=== PATIENT | female | born 1990 | race Caucasian/White ===

== ENCOUNTER 2017-12-17 11:22 | Inpatient (IN) | payer OTHER ==
[~2017-12-17] VITALS: Ht 157.5 cm; Wt 125.5 kg
[~2017-12-17 11:22] MED LIST: LEVO100T5 PO; PREN1TAB60 PO
[2017-12-17 11:48] VITALS: BP 151/83
[2017-12-17 11:58] LABS: BASOPHILS # (AUTO) 0.02 x10^3/uL (0-0.1); BASOPHILS % (AUTO) 0 % (0-1); EOSINOPHILS % (AUTO) 0 % (1-7); LYMPHOCYTES # (AUTO) 1.84 x10^3/uL (1-3.4); LYMPHOCYTES % (AUTO) 17 % (22-44); MD NO; MEAN CORPUSCULAR HEMOGLOBIN 30.1 pg (27.0-34.8); MEAN CORPUSCULAR HGB CONC 34.5 g/dL (32.4-35.8); MEAN CORPUSCULAR VOLUME 87.3 fL (80-100); MEAN PLATELET VOLUME 9.3 fL (7.4-10.4); MONOCYTES # (AUTO) 0.83 x10^3/uL (0.2-0.8); MONOCYTES % (AUTO) 8 % (2-9); NEUTROPHILS # (AUTO) 8.04 x10^3/uL (1.8-6.8); NEUTROPHILS % (AUTO) 75 % (42-75); PLATELET COUNT 318 x10^3/uL (130-400); RED BLOOD COUNT 4.24 x10^6/uL (3.82-5.3); RED CELL DISTRIBUTION WIDTH 15.1 % (9.6-15.2)
[2017-12-17 11:58] LABS: MICROSCOPIC NOT IND
[2017-12-17 12:09] LABS: ALANINE AMINOTRANSFERASE 14 U/L (12-78); ALBUMIN 2.9 g/dL (3.4-5.0); ANION GAP 11 mmol/L (5-15); CALCIUM 9.3 mg/dL (8.5-10.1); CHLORIDE 105 mmol/L (98-107); CREATININE 0.52 mg/dL (0.55-1.02)
[2017-12-17 12:11] LABS: ALKALINE PHOSPHATASE 174 U/L (45-117); BILIRUBIN,TOTAL 0.3 mg/dL (0.2-1.0); TOTAL PROTEIN 7.2 g/dL (6.4-8.2)
[2017-12-17 12:13] LABS: CREATININE,URINE RANDOM 60.4 mg/dL
[2017-12-17] MEDS ORDERED: ACETAMINOPHEN 325 MG TABLET ONE ×2 (12:24→16:51)
[2017-12-17] MEDS ORDERED: OXYTOCIN 30U/ 0.9% NaCL 500ML 500 ML IV ONE (12:34)
[2017-12-17] MEDS: ACETAMINOPHEN 325 MG TABLET PO PRN ×2 (12:35→16:53)
[2017-12-17] MEDS ORDERED: FENTANYL PF 100 MCG/2ML IV PRN (13:00)
[2017-12-17] MEDS ORDERED: ONDANSETRON 2MG/ML, 2ML IVPush PRN (13:00)
[2017-12-17] MEDS: LACTATED RINGERS 1,000 ML IV SCH ×2 (13:06→20:44)
[2017-12-17] MEDS ORDERED: MAGNESIUM SULF. PMX 20GM/500ML 500 ML IV ONE ×2 (13:56→21:54)
[2017-12-17] MEDS ORDERED: MISOPROSTOL 25 MCG TABLET ONE ×3 (14:08→19:05)
[2017-12-17] MEDS ORDERED: MAGNESIUM SULFATE PMX 4GM/100M 100 ML IVPB ONE (14:30)
[2017-12-17] MEDS: MAGNESIUM SULF. PMX 20GM/500ML 500 ML IV SCH ×2 (14:36→21:57)
[2017-12-17] MEDS: MISOPROSTOL 25 MCG TABLET VG PRN ×2 (14:56→19:00)
[2017-12-17] MEDS ORDERED: NEWBORN KIT ONE (15:23)
[2017-12-17] MEDS ORDERED: OXYTOCIN 30U/ 0.9% NaCL 500ML 500 ML ONE (15:23)
[2017-12-17] MEDS ORDERED: OXYcodone/APAP 5/325MG TABLET ONE (19:59)
[2017-12-17] MEDS: OXYcodone/APAP 5/325MG TABLET PO PRN (20:02)
[2017-12-18] MEDS: MISOPROSTOL 25 MCG TABLET VG PRN (02:05)
[2017-12-18] MEDS ORDERED: FENTANYL PF 100 MCG/2ML ONE ×4 (03:03→23:57)
[2017-12-18] MEDS: FENTANYL PF 100 MCG/2ML IVPush PRN ×3 (05:16→23:59)
[2017-12-18] MEDS ORDERED: OXYcodone/APAP 5/325MG TABLET ONE (07:31)
[2017-12-18] MEDS ORDERED: MAGNESIUM SULF. PMX 20GM/500ML 500 ML IV ONE ×2 (07:31→17:56)
[2017-12-18] MEDS: OXYcodone/APAP 5/325MG TABLET PO PRN (07:34)
[2017-12-18] MEDS: MAGNESIUM SULF. PMX 20GM/500ML 500 ML IV SCH ×2 (07:36→18:01)
[2017-12-18] MEDS: LACTATED RINGERS 1,000 ML IV SCH ×3 (07:54→20:34)
[2017-12-18] MEDS ORDERED: MISOPROSTOL 25 MCG TABLET ONE (08:09)
[2017-12-18] MEDS ORDERED: BUTALB/APAP/CAFFEINE 50MG/325MG/40MG PO PRN (09:30)
[2017-12-18] MEDS ORDERED: LIDOCAINE 1%, 50ML ONE (17:51)
[2017-12-18] MEDS ORDERED: MISOPROSTOL 200 MCG TABLET ONE (17:52)
[2017-12-18] MEDS ORDERED: DIPH,PERTUSS(ACELL),TET VAC/PF NC IM-VACC ONE (17:56)
[2017-12-18 19:19] VITALS: BP 134/75
[2017-12-18] MEDS ORDERED: FENTANYL/BUPIV./NS/PF 250 ML EPIDCONT SCH (20:17)
[2017-12-18] MEDS ORDERED: FENTANYL PF 500 MCG, BUPIVACAINE/PF 0.5%, 30ML 62.5 ML in SODIUM CHLORIDE 0.9% 177.5 ML EPIDCONT SCH (20:30)
[2017-12-18] MEDS ORDERED: ZOLPIDEM 10MG TABLET ONE (21:24)
[2017-12-18] MEDS ORDERED: ZOLPIDEM 10MG TABLET PO PRN (21:30)
[2017-12-18] MEDS ORDERED: OXYTOCIN 30U/ 0.9% NaCL 500ML 500 ML IV PRN (21:44)
[2017-12-19 00:24] VITALS: BP 172/79
[2017-12-19] MEDS ORDERED: LABETALOL 200 MG TABLET PO SCH (00:30)
[2017-12-19] MEDS ORDERED: LABETALOL 200 MG TABLET ONE (00:35)
[2017-12-19 01:01] VITALS: BP 131/73
[2017-12-19] MEDS ORDERED: LABETALOL 200 MG TABLET PO ONE (01:30)
[2017-12-19] MEDS ORDERED: MAGNESIUM SULF. PMX 20GM/500ML 500 ML IV ONE ×2 (03:34→14:39)
[2017-12-19] MEDS: LACTATED RINGERS 1,000 ML IV SCH ×4 (03:37→23:16)
[2017-12-19] MEDS: MAGNESIUM SULF. PMX 20GM/500ML 500 ML IV SCH ×2 (03:37→14:43)
[2017-12-19 05:14] VITALS: BP 131/91
[2017-12-19] MEDS ORDERED: FENTANYL PF 100 MCG/2ML ONE ×3 (06:11→21:52)
[2017-12-19] MEDS: FENTANYL PF 100 MCG/2ML IVPush PRN (06:16)
[2017-12-19 08:00] VITALS: BP 124/64
[2017-12-19] MEDS ORDERED: FENTANYL/BUPIV./NS/PF 250 ML EPIDCONT SCH (08:45)
[2017-12-19] MEDS ORDERED: EPHEDRINE 50 MG/ML, 1ML IVPush PRN (09:00)
[2017-12-19] MEDS ORDERED: NALOXONE 0.4 MG/ML, 1ML IVPush PRN (09:00)
[2017-12-19] MEDS ORDERED: LACTATED RINGERS 1,000 ML IVBOLUS PRN (09:00)
[2017-12-19] MEDS ORDERED: BUPIVACAINE 0.25% ONE (09:15)
[2017-12-19] MEDS ORDERED: hydrALAzine 20 MG/ML, 1ML ONE ×2 (13:44→19:31)
[2017-12-19] MEDS ORDERED: hydrALAzine 20 MG/ML, 1ML IVPush ONE ×2 (14:00)
[2017-12-19] MEDS ORDERED: ACETAMINOPHEN 325 MG TABLET ONE ×2 (16:12→20:57)
[2017-12-19] MEDS: ACETAMINOPHEN 325 MG TABLET PO PRN ×2 (16:14→21:00)
[2017-12-19] MEDS ORDERED: D5%-LACTATED RINGERS 1,000 ML IV SCH (18:00)
[2017-12-19] MEDS ORDERED: hydrALAzine 20 MG/ML, 1ML IV ONE ×2 (19:30→21:00)
[2017-12-19] MEDS ORDERED: METOCLOPRAMIDE 5 MG/ML, 2ML ONE (21:20)
[2017-12-19] MEDS ORDERED: SODIUM CITRATE/CITRIC ACID 30 ML UDC ONE (21:20)
[2017-12-19] MEDS ORDERED: DEXAMETHASONE 4 MG/ML, 1ML ONE (21:52)
[2017-12-19] MEDS ORDERED: SUCCINYLCHOLINE 20 MG/ML, 10ML ONE (21:52)
[2017-12-19] MEDS ORDERED: ONDANSETRON 2MG/ML, 2ML ONE (21:52)
[2017-12-19] MEDS ORDERED: KETOROLAC 30 MG/1 ML ONE (21:52)
[2017-12-19] MEDS ORDERED: CEFAZOLIN 1,000 MG ONE (21:52)
[2017-12-19] MEDS ORDERED: EPHEDRINE 50 MG/ML, 1ML ONE (21:52)
[2017-12-19] MEDS ORDERED: PROPOFOL 10 MG/ML, 20ML ONE (21:52)
[2017-12-19] MEDS ORDERED: PHENYLEPHRINE 10 MG/ML ONE (21:52)
[2017-12-19] MEDS ORDERED: OXYTOCIN 10 UNITS/ML, 1ML ONE (21:52)
[2017-12-19] MEDS ORDERED: LACTATED RINGERS 1,000 ML IV SCH (23:16)
[2017-12-19] MEDS ORDERED: LABETALOL 5MG/ML, 20ML IV PRN (23:30)
[2017-12-19] MEDS ORDERED: MEPERIDINE/PF 50 MG/ML IVPush PRN (23:30)
[2017-12-19] MEDS ORDERED: FENTANYL PF 100 MCG/2ML IV PRN (23:30)
[2017-12-19] MEDS ORDERED: hydrALAzine 20 MG/ML, 1ML IV PRN (23:30)
[2017-12-19] MEDS ORDERED: MEPERIDINE/PF 100 MG/ML IVPush PRN (23:30)
[2017-12-19] MEDS ORDERED: ONDANSETRON 2MG/ML, 2ML IVPush PRN (23:30)
[2017-12-19] MEDS ORDERED: OXYcodone 5 MG/5 ML ORAL.SOL UDC PO PRN (23:30)
[2017-12-19] MEDS ORDERED: PROMETHAZINE 25 MG/ML, 1ML IV PRN (23:30)
[2017-12-19] MEDS ORDERED: HYDROcodone/APAP 7.5-325MG/15ML UDC PO PRN (23:30)
[2017-12-19] MEDS ORDERED: morphine SULFATE 10 MG/ML, 1ML IVPush PRN ×2 (23:30)
[2017-12-19] MEDS ORDERED: ONDANSETRON 2MG/ML, 2ML IV PRN (23:30)
[2017-12-19] MEDS ORDERED: ACETAMINOPHEN 325 MG TABLET PO PRN (23:30)
[2017-12-19] MEDS ORDERED: OXYcodone/APAP 5/325MG TABLET PO PRN (23:30)
[2017-12-19] MEDS ORDERED: MISOPROSTOL 200 MCG TABLET PR PRN (23:30)
[2017-12-19] MEDS ORDERED: HYDROmorphone 1 MG/ML, 1ML IV PRN (23:30)
[2017-12-19] MEDS ORDERED: MEPERIDINE/PF 25MG/0.5ML IVPush PRN (23:30)
[2017-12-20] MEDS ORDERED: OXYcodone/APAP 5/325MG TABLET ONE ×8 (00:45→21:57)
[2017-12-20] MEDS: OXYcodone/APAP 5/325MG TABLET PO PRN ×6 (00:47→22:06)
[2017-12-20] MEDS ORDERED: MAGNESIUM SULF. PMX 20GM/500ML 500 ML IV ONE ×2 (01:00→12:42)
[2017-12-20] MEDS ORDERED: OXYTOCIN 30U/ 0.9% NaCL 500ML 500 ML ONE (01:00)
[2017-12-20] MEDS: MAGNESIUM SULF. PMX 20GM/500ML 500 ML IV SCH ×2 (01:05→12:51)
[2017-12-20] MEDS: OXYTOCIN 30U/ 0.9% NaCL 500ML 500 ML IV SCH ×3 (01:06→19:16)
[2017-12-20] MEDS: LACTATED RINGERS 1,000 ML IV SCH ×3 (01:06→19:16)
[2017-12-20] MEDS ORDERED: METOCLOPRAMIDE 5 MG/ML, 2ML IVPush ONE (06:30)
[2017-12-20] MEDS ORDERED: SODIUM CITRATE/CITRIC ACID 30 ML UDC PO ONE (06:30)
[2017-12-20 07:16] LABS: ALANINE AMINOTRANSFERASE 11 U/L (12-78); ALBUMIN 2.2 g/dL (3.4-5.0); ANION GAP 11 mmol/L (5-15); BASOPHILS # (AUTO) 0.07 x10^3/uL (0-0.1); BASOPHILS % (AUTO) 0 % (0-1); CALCIUM 7.9 mg/dL (8.5-10.1); CHLORIDE 105 mmol/L (98-107); CREATININE 0.53 mg/dL (0.55-1.02); EOSINOPHILS % (AUTO) 0 % (1-7); LYMPHOCYTES # (AUTO) 1.06 x10^3/uL (1-3.4); LYMPHOCYTES % (AUTO) 7 % (22-44); MD NO; MEAN CORPUSCULAR HEMOGLOBIN 29.8 pg (27.0-34.8); MEAN CORPUSCULAR HGB CONC 33.9 g/dL (32.4-35.8); MEAN CORPUSCULAR VOLUME 87.8 fL (80-100); MONOCYTES # (AUTO) 0.57 x10^3/uL (0.2-0.8); MONOCYTES % (AUTO) 4 % (2-9); NEUTROPHILS % (AUTO) 89 % (42-75); PLATELET COUNT 298 x10^3/uL (130-400); RED BLOOD COUNT 3.97 x10^6/uL (3.82-5.3); RED CELL DISTRIBUTION WIDTH 15.5 % (9.6-15.2)
[2017-12-20 07:18] LABS: ALKALINE PHOSPHATASE 161 U/L (45-117); BILIRUBIN,TOTAL 0.3 mg/dL (0.2-1.0)
[2017-12-20] MEDS ORDERED: PRENATAL VIT/IRON/FA 1 EACH TABLET ONE (09:02)
[2017-12-20] MEDS ORDERED: DOCUSATE 100 MG CAPSULE ONE ×2 (09:02→22:56)
[2017-12-20] MEDS: DOCUSATE 100 MG CAPSULE PO PRN ×2 (09:05→23:30)
[2017-12-20] MEDS: PRENATAL VIT/IRON/FA 1 EACH TABLET PO SCH (09:05)
[2017-12-20 09:47] VITALS: BP 128/74
[2017-12-20] MEDS: ENOXAPARIN 30 MG/0.3 ML SQ SCH (11:46)
[2017-12-21] MEDS: OXYcodone/APAP 5/325MG TABLET PO PRN ×3 (00:48→10:12)
[2017-12-21] MEDS: ENOXAPARIN 30 MG/0.3 ML SQ SCH ×2 (00:58→13:09)
[2017-12-21] MEDS: LEVOTHYROXINE 100 MCG TABLET PO SCH (05:51)
[2017-12-21 06:09] LABS: CREATININE 0.55 mg/dL (0.55-1.02)
[2017-12-21 07:09] VITALS: BP 150/81
[2017-12-21] MEDS: PRENATAL VIT/IRON/FA 1 EACH TABLET PO SCH (07:46)
[2017-12-21] MEDS: LACTATED RINGERS 1,000 ML IV SCH ×2 (07:49→16:38)
[2017-12-21] MEDS: OXYTOCIN 30U/ 0.9% NaCL 500ML 500 ML IV SCH ×2 (07:49→16:38)
[2017-12-21 12:00] VITALS: BP 142/80
[2017-12-21] MEDS: AZITHROMYCIN 500 MG TABLET PO SCH (12:07)
[2017-12-21] MEDS: niFEDipine ER 60 MG TABLET.ER PO SCH (12:07)
[2017-12-21 16:00] VITALS: BP 119/76
[2017-12-21] MEDS ORDERED: OMNIPAQUE 350 MG/ML, 100ML BOTTLE ONE (16:49)
[2017-12-21] MEDS ORDERED: FUROSEMIDE 20 MG/2 ML IV ONE (17:30)
[2017-12-21] MEDS: OXYcodone/APAP 10/325MG TABLET PO PRN ×2 (18:36→22:26)
[2017-12-21 20:00] VITALS: BP 129/86
[2017-12-21] MEDS: DOCUSATE 100 MG CAPSULE PO PRN (22:25)
[2017-12-22] MEDS: ENOXAPARIN 30 MG/0.3 ML SQ SCH ×2 (00:56→13:38)
[2017-12-22 01:00] VITALS: BP 116/70
[2017-12-22] MEDS: OXYTOCIN 30U/ 0.9% NaCL 500ML 500 ML IV SCH ×3 (01:16→21:16)
[2017-12-22] MEDS: LACTATED RINGERS 1,000 ML IV SCH ×3 (01:16→21:16)
[2017-12-22] MEDS: OXYcodone/APAP 10/325MG TABLET PO PRN ×5 (03:07→22:49)
[2017-12-22 03:45] VITALS: BP 121/81
[2017-12-22] MEDS: LEVOTHYROXINE 100 MCG TABLET PO SCH (06:07)
[2017-12-22 08:00] VITALS: BP 130/86
[2017-12-22] MEDS ORDERED: niFEDipine ER 60 MG TABLET.ER PO SCH (09:00)
[2017-12-22] MEDS: niFEDipine ER 60 MG TABLET.ER PO SCH (09:03)
[2017-12-22] MEDS: DOCUSATE 100 MG CAPSULE PO PRN (09:03)
[2017-12-22] MEDS: AZITHROMYCIN 500 MG TABLET PO SCH (09:03)
[2017-12-22] MEDS: PRENATAL VIT/IRON/FA 1 EACH TABLET PO SCH (09:03)
[2017-12-22 14:38] VITALS: BP 112/72
[2017-12-22 20:10] VITALS: BP 115/75
[2017-12-23 00:20] VITALS: BP 139/85
[2017-12-23] MEDS: ENOXAPARIN 30 MG/0.3 ML SQ SCH ×2 (01:16→13:24)
[2017-12-23] MEDS: OXYcodone/APAP 10/325MG TABLET PO PRN ×3 (04:49→16:57)
[2017-12-23 05:00] VITALS: BP 149/82
[2017-12-23] MEDS: LEVOTHYROXINE 100 MCG TABLET PO SCH (06:53)
[2017-12-23] MEDS: LACTATED RINGERS 1,000 ML IV SCH ×2 (07:16→17:16)
[2017-12-23] MEDS: OXYTOCIN 30U/ 0.9% NaCL 500ML 500 ML IV SCH ×2 (07:16→17:16)
[2017-12-23 07:37] VITALS: BP 119/82
[2017-12-23] MEDS: DOCUSATE 100 MG CAPSULE PO PRN (08:11)
[2017-12-23] MEDS: AZITHROMYCIN 500 MG TABLET PO SCH (08:11)
[2017-12-23] MEDS: niFEDipine ER 60 MG TABLET.ER PO SCH (08:11)
[2017-12-23] MEDS: PRENATAL VIT/IRON/FA 1 EACH TABLET PO SCH (08:11)
[2017-12-23] MEDS ORDERED: OXYC-302 PO (09:24)
[2017-12-23 12:00] VITALS: BP 101/61
[2017-12-23 16:59] VITALS: BP 124/84
[2017-12-23] MEDS ORDERED: NIFE60TA2 PO ×2 (19:07→19:08)
[2017-12-23] MEDS ORDERED: AZIT250T89 PO (19:11)
[2017-12-23] MEDS ORDERED: IBUP-1222 PO (19:13)
== END 2017-12-23 20:50 | disposition home or self-care (01) | DRG 765 ==
LOC: LDOP 11:22 → LDIP 12:36 → 2NE 12-19 23:42 → 2NW 12-20 23:56
PROVIDERS: ADMIT Obstetrics & Gynecology; ATTEND Obstetrics & Gynecology
PROC: 10D00Z1 Extraction of Products of Conception, Low, Open Approach (ICD-10-PCS; principal; 2017-12-19)
DX: O14.14 Severe pre-eclampsia complicating childbirth (principal); J18.9 Pneumonia, unspecified organism; O98.82 Other maternal infectious and parasitic diseases complicating childbirth; Z68.43 Body mass index [BMI] 50.0-59.9, adult; O48.0 Post-term pregnancy; Z37.0 Single live birth; O99.214 Obesity complicating childbirth; E66.01 Morbid (severe) obesity due to excess calories; O61.9 Failed induction of labor, unspecified; O69.81X0 Labor and delivery complicated by cord around neck, without compression, not applicable or unspecified; O99.334 Smoking (tobacco) complicating childbirth; F17.200 Nicotine dependence, unspecified, uncomplicated; O99.284 Endocrine, nutritional and metabolic diseases complicating childbirth; E03.9 Hypothyroidism, unspecified; Z3A.40 40 weeks gestation of pregnancy; Z79.890 Hormone replacement therapy; O99.52 Diseases of the respiratory system complicating childbirth; O62.2 Other uterine inertia; O32.8XX0 Maternal care for other malpresentation of fetus, not applicable or unspecified; Z23 Encounter for immunization; Z90.49 Acquired absence of other specified parts of digestive tract
CPT/HCPCS: 36415; J7121; 59200; 71046; 71275; 76815; 80053; 81003; 82565; 82570; 82803; 83735; 84156; 84550; 85025; 86850; 86900; 93005; J0690; J1100; J1170; J1650; J1885; J2405; J2704; J3010; J3490; Q9967; J0330; J0360; J1940; J2370; J2590; J2765; J3475; J7050; J7120